=== PATIENT | male | born 1940 | race Caucasian/White ===

== ENCOUNTER 2021-12-04 10:01 | Emergency (ER) | payer MEDICARE, SELFPAY ==
[2021-12-04 10:07] VITALS: BP 183/82; PULSE 68; RESP 16; TEMP 36.2; O2SAT 99
--- NOTE | 2021-12-04 10:11 | ED.WOUNDLAC ---
HPI - Wound/Laceration General Chief Complaint: Wound/Laceration Stated Complaint: L HAND INJURY/SWELLING Time Seen by Provider: 12/04/21 10:10 Source: patient, family and RN notes reviewed History of Present Illness HPI narrative: Patient is an 81-year-old male who presents the urgent care with his spouse with complaints of a left hand wound. Patient states that 5 days ago he cut it on a tomato cage. Patient has been keeping it clean and using Neosporin. Patient states over the last 24 hours he has had increased swelling, pain and redness surrounding the wound. Denies of any fever, nausea or vomiting. No other acute complaints. No acute distress noted. Patient aware of the plan of care. Some parts of this dictation were generated by voice recognition software and may contain typographical and/or grammatical inaccuracies. Related Data Home Medications Medication Instructions Recorded Confirmed multivitamin 1 tablet PO DAILY 06/24/19 12/04/21 travoprost 0.004 % eye drops 1 drop EACH EYE QPM 06/24/19 12/04/21 acetazolamide 250 mg tablet 125 mg PO DAILY tablet 06/21/21 12/04/21 Allergies Allergy/AdvReac Type Severity Reaction Status Date / Time adhesive tape Allergy Severe BLISTERS Verified 12/04/21 10:07 brimonidine Allergy Severe RESPIRATORY Verified 12/04/21 10:07 DISTRESS latex Allergy Severe skin Verified 12/04/21 10:07 removed timolol Allergy Severe RESPIRATORY Verified 12/04/21 10:07 DISTRESS Review of Systems Review of Systems: CONSTITUTIONAL: Denies fever, chills, or sweats. EYES: Denies visual changes, redness, or discharge. ENT: Denies rhinorrhea, congestion, sore throat, or otalgia. CARDIOVASCULAR: Denies chest pain, palpitations, or edema. RESPIRATORY: Denies cough or dyspnea. GASTROINTESTINAL: Denies abdominal pain, nausea, vomiting, or diarrhea. GENITOURINARY: Denies dysuria or hematuria. SKIN: Reports of a swollen skin tear to the left hand MUSCULOSKELETAL: Denies back pain, joint pain, or myalgia. NEUROLOGIC: Denies headache, numbness, or weakness. All other systems reviewed are negative, except as documented in HPI. [facility] Past Medical History Medical History DVT (deep venous thrombosis) Essential hypertension Glaucoma History of gout Surgical History Surgical History H/O hernia repair H/O: vasectomy History of appendectomy History of hip replacement Hx of tonsillectomy Family History Family History Mother Hypertension Family history of elevated blood lipids Patient's mother is , Onset Age: 91 Father Carcinoma of colon Malignant neoplasm of prostate Sibling Malignant neoplasm of prostate Carcinoma of colon Brain aneurysm Other No family history of cardiovascular disease Social History Social History (Updated 06/21/21 @ 10:03 by Deloris Styles) Social History: Caffeine-coffee daily Smoking status: Former smoker Alcohol intake: current Alcohol use details: half a bottle of wine per day, scotch a few times a week Comments At the time of my signature, I reviewed and agree with the nursing past medical, surgical, social, and family history. There is no relevant family history pertinent to the patient complaint. Exam Narrative: GENERAL: This is a well-nourished, well-developed patient, in no apparent distress. HEAD: normocephalic, atraumatic. EYES: PERRL. Sclera clear/white. Vision is grossly intact. EARS: External ears normal NOSE: External nose normal with no obvious nasal discharge, nares without redness, no rhinorrhea. THROAT: Mucous membranes moist NECK: Neck supple CARDIOVASCULAR: Regular rate and rhythm without murmurs, gallops, or rubs. GASTROINTESTINAL: Abdomen soft, non-tender, nondistended. Bowel sounds are active. No hepato-splenomegaly, or palpable masses. No gua
== END 2021-12-04 10:23 | disposition home or self-care (01) ==
PROVIDERS: Emergency Provider Nurse Practitioner Family; PCP Internal Medicine
DX: L08.9 Local infection of the skin and subcutaneous tissue, unspecified (principal); S61.412A Laceration without foreign body of left hand, initial encounter; W45.8XXA Other foreign body or object entering through skin, initial encounter; Y93.9 Activity, unspecified; Z87.891 Personal history of nicotine dependence; Z86.718 Personal history of other venous thrombosis and embolism; I10 Essential (primary) hypertension; H40.9 Unspecified glaucoma; M10.9 Gout, unspecified; Z98.52 Vasectomy status; Z96.649 Presence of unspecified artificial hip joint
CPT/HCPCS: 99213; G0463

== ENCOUNTER 2023-03-14 10:45 | Outpatient (RCR) | payer MEDICARE, SELFPAY ==
--- NOTE | 2023-03-07 10:00 | OPREHPOC ---
Outpatient Therapy Plan of Care This is a Multidisciplinary Plan of Care that may contain components documented by all disciplines (PT, OT, and ST.) PT Problem 1 PT Problem #1 Knowledge Deficit PT Goal 1 Goal Patient and Independent with HEP Target Visit 8 PT Problem 2 PT Problem #2 Impaired Strength PT Goal 1 Goal STEVEN ankles 4+/5 Target Visit 8 PT Goal 2 Goal STEVEN hip abductors 4+/5 Target Visit 8 PT Problem 3 PT Problem #3 Impaired Balance PT Goal 1 Goal able to do tandem stance with either leg leading no UE support x 30 seconds Target Visit 8 PT Goal 2 Goal single limb stance either leg 15 seconds without UE support Target Visit 8 PT Problem 4 PT Problem #4 Impaired Gait PT Goal 1 Goal Ambulate outside on uneven surface independently Target Visit 8 PT Problem 5 PT Problem #5 Impaired Vestibular Syste PT Goal 1 Goal Patient able to do 20 seconds of H and diagonal smooth pursuits without eyes jumping Target Visit 8
--- NOTE | 2023-03-07 10:00 | PTOPEVAL1 ---
Assessment and note entered by Felice Kate, PT Evaluation Information Assessment Status Evaluation Diagnosis abnormalities of gait and mobility, vertigo Subjective Information Patient reports feeling of lightheadedness with sitting up and standing up along with unsteadiness on uneven surface when outside. Patient has has falls in the last two year, but non since October of this year when he tripped over a stump. Patient has a bad left eye with glaucoma and needs to have his ears professionally cleaned of ear wax twice a year with saying it should be more than that. No sinus issues or neck issues. Patient reports rarely feeling a spinning sensation, but that it has happened. No N/V or headaches with symptoms. Reported Pain Level Pain Score 0: Self Report Assessment PT Clinical Summary Dragan is an 82 year old male coming into the clinic with a diagnosis of abnormalities of gait and mobility and vertigo. Patient has negative Warren- Halpike to L and R, but weakness in his ankles and hip abductors. Unable to do 5 sit to stands in less than 15 seconds and has some ocular motor concerns. Physical therapy will focus on balance and lower extremity strengthening along with gait and posture improvement with an eye on any new reports of vertigo. Plan of Care Interventions Electrical Stimulation,Gait Training,Hot Pack/Cold Pack,Manual Therapy,Neuro Re-education,Patient/ Caregiver Education,Therapeutic Activities, Therapeutic Exercise,Ultrasound Other Interventions cupping, taping, IASTM PT Services Indicated Yes Treatment Frequency and 1-2x/wk for 8 visits Duration These treatments will address the objective and functional deficits as defined above. The patient will be advanced safely and appropriately in order for the patient to progress towards his/her prior level of function. Additional exercises will be introduced and as well as a comprehensive home exercise program upon discharge, if needed, ?to ensure carryover of functional gains achieved in the clinic. This treatment plan has been reviewed and agreement upon by the patient.
--- NOTE | 2023-03-22 10:43 | PCPTNOTE ---
Mr. Ghosh contacted the clinic on 03/22/23 stating that he no longer wanted to participate in therapy.
--- NOTE | 2023-03-22 10:45 | PTOPDC ---
Assessment and note entered by Rodrick Mak Evaluation Information Assessment Status Discharge - Pt Not Presen Diagnosis abnormalities of gait and mobility, vertigo Subjective Information Assessment PT Clinical Summary Mr. Ghosh attended a total of 2 treatment sessions. He contacted the clinic on 03/22/23 stating that he no longer wanted to participate in therapy, but did not give a reason. He will be discharged from our care. Refer to last daily note for patient discharge status. Plan of Care PT Services Indicated Yes
--- NOTE | 2023-03-22 11:02 | PCPTNOTE ---
Pt. left message 03/21/23 stating that he was canceling the rest of his appointments as he no longer wanted therapy.
== END 2023-03-22 15:31 | disposition home or self-care (01) ==
LOC: ANHPT 10:45
PROVIDERS: PCP Internal Medicine; Visit Provider Internal Medicine
DX: R26.9 Unspecified abnormalities of gait and mobility (principal); R42 Dizziness and giddiness
CPT/HCPCS: 97110; 97112; 97161; 97530

== ENCOUNTER → 2023-04-16 13:35 | Outpatient (CLI) | payer MEDICARE, SELFPAY ==
--- NOTE | ~2023-04-16 | MR_ITS ---
MRI of the left shoulder Technique: Axial proton-density fat-sat images, coronal proton density fat-sat and T2 fat-sat images, and sagittal T1-weighted and T2 fat-sat images were acquired. Clinical History: Pain Findings: There is severe AC joint degenerative change. There is probable rupture of the inferior acr omioclavicular ligament with fluid extending from the subacromial/subdeltoid bursa and into the AC felicita int space itself. Coracoclavicular, coracoacromial, and coracohumeral ligaments appear to be intact. There is complete, full-thickness tear involving the entirety of the supraspinatus tendon, with fluid -filled gap measuring approximately 4.2 x 3.2 cm in extent. Infraspinatus tendon demonstrates a moder ate grade interstitial tear at the myotendinous junction region, the distal fibers appear to be intac t. There is complete tear of the distal subscapularis tendon, with amorphous hyperintense retracted tend on. There is medial dislocation of the biceps tendon from the bicipital groove with advanced intra-ar ticular tendinosis. Humeral head is high riding. There is moderate glenohumeral joint degenerative change. There are smal l glenohumeral joint effusion, with fluid passing through the rotator cuff defect into the subacromia l/subdeltoid bursa. There is probable extensive degenerative labral tearing, especially involving the anterior labrum. Inferior glenohumeral ligament is intact. Possible mild loss of bulk of the supraspinatus and subscap ularis muscle bellies. No muscle edema evident. Impression: Complete full-thickness tears of the supraspinatus and subscapularis tendons, as detailed above. Moderate grade interstitial tear of the infraspinatus tendon at the myotendinous junction region. Medial dislocation of the biceps tendon. Degenerative labral tearing, especially involving the anterior labrum. Advanced AC joint degenerative change with probable rupture of the inferior acromioclavicular ligamen t, with fluid passing from the subacromial/subdeltoid bursa into the AC joint itself. Moderate glenohumeral joint degenerative change with high riding humeral head. Reviewed, dictated and finalized at location M. Impression: Complete full-thickness tears of the supraspinatus and subscapularis tendons, a s detailed above. Moderate grade interstitial tear of the infraspinatus tendon at the myotendinou s junction region. Medial dislocation of the biceps tendon. Degenerative labral tearing, especially involving the anterior labrum. Advanced AC joint degenerative change with probable rupture of the inferior acr omioclavicular ligament, with fluid passing from the subacromial/subdeltoid bur sa into the AC joint itself. Moderate glenohumeral joint degenerative change with high riding humeral head.
== END ==
PROVIDERS: PCP Internal Medicine; Visit Provider Nurse Practitioner
DX: S46.012A Strain of muscle(s) and tendon(s) of the rotator cuff of left shoulder, initial encounter (principal); S46.212A Strain of muscle, fascia and tendon of other parts of biceps, left arm, initial encounter; S43.432A Superior glenoid labrum lesion of left shoulder, initial encounter; M19.012 Primary osteoarthritis, left shoulder
CPT/HCPCS: 73221

== ENCOUNTER 2023-08-17 11:45 | Outpatient (CLI) | payer MEDICARE, SELFPAY ==
--- NOTE | 2023-08-17 12:54 | ECG_ITS ---
Measurements Intervals [place] Rate: 57 P: 4 PA: 148 QRS: 1 QRSD: 84 T: 11 QT: 402 QTc: 392 Interpretive Statements SINUS BRADYCARDIA POOR R-WAVE PROGRESSION CONSIDER PREVIOUS iNFERIOR MYOCARDIAL INFARCTION ABNORMAL ECG COMPARED TO ECG 01/26/2019 17:29:43 NO SIGNIFICANT DIFFERENCE Electronically Signed On 08-17-2023 14:00:45 MANAGER EVENT by Rodrick Wells M.D.
[2023-08-17 13:12] LABS: Basophils Percent Auto 0.4 % (0.2-1.2); Eosinophils Absolute Auto 0.5 K/mm3 (0-0.3); Hemoglobin 14.7 g/dL (14.0-18.0); Immature Granulocyte Absolute 0.03 K/mm3 (0.00-0.031); Immature Granulocyte Percent A 0.4 % (0-0.5); Lymphocytes Absolute Auto 1.67 K/mm3 (0.9-3.2); Lymphocytes Percent Auto 19.9 % (18.3-44.2); Mean Corpuscular HGB Conc 32.7 g/dl (32-36); Mean Corpuscular Volume 100.9 fl (80-100); Mean Platelet Volume 10.2 fl (7.4-10.4); Monocytes Absolute Auto 0.6 K/mm3 (0.1-0.6); Monocytes Percent Auto 7.6 % (2.6-8.5); Neutrophils Absolute Auto 5.5 K/mm3 (1.3-6.7); Neutrophils Percent Auto 65.7 % (45.5-73.1); Platelet Count Result 200 k/mm3 (150-375); Red Blood Count 4.46 M/mm3 (4.6-6.20); Red Cell Distribution Width 12.6 % (11.5-14.5); White Blood Count 8.4 K/mm3 (4.5-10.0)
[2023-08-17 14:52] LABS: MRSA (PCR) NOT DETECTED (NOT DETECTE)
== END 2023-08-17 11:46 | disposition home or self-care (01) ==
LOC: ANHSURGERY 11:55
PROVIDERS: PCP Internal Medicine; Visit Provider Orthopaedic Surgery
DX: Z01.812 Encounter for preprocedural laboratory examination (principal); Z01.810 Encounter for preprocedural cardiovascular examination; M12.812 Other specific arthropathies, not elsewhere classified, left shoulder; R00.1 Bradycardia, unspecified
CPT/HCPCS: 36415; 85025; 87641; 93005

== ENCOUNTER 2023-09-10 03:46 | Day surgery (SDC) | payer MEDICARE, SELFPAY ==
[2023-08-17 12:10] VITALS: BP 164/74; PULSE 66; RESP 16; TEMP 36.9; O2SAT 98; BMI 26.6
--- NOTE | 2023-08-17 12:29 | PC.NURSE ---
Report to the Outpatient Waiting Room, entrance under the green pavilion located off [facility], at time _10:00AM on date __09/10/23__. Planned Procedure Time: __12:00PM . Time changes happen often and if your time is changed the preop area will call you the afternoon before. - You and your visitor will be asked to self-screen and do not enter if you have any COVID symptoms. - A mask is optional within the hospital at this time. Patients may have clear liquids (water, carbonated beverages, clear teas, apple juice) until 3 hours prior to surgery with a maximum of 20 ounces. - No food from midnight until time of surgery. Take the following medications with a SIP of water the morning of surgery: ___NONE DO NOT STOP ANY OF YOUR OTHER PRESCRIPTION MEDICATIONS PRIOR TO SURGERY ?EXCEPT THE FOLLOWING Medications to discontinue per physician ___HOLD ALL VITAMINS/SUPPLEMENTS 3 DAYS PRE-OP Date to take last dose___09/06/23 Please no make-up, nail turkish, hairspray, perfume, deodorant, or body powder the day of surgery. No jewelry (including any body piercings) or valuables the day of surgery, leave them at home. Please take a shower or bath the night before, or the morning of, surgery with an antibacterial soap. Wear comfortable, loose fitting clothing. - Jewelry must be removed prior to entering the operating room. Rings and piercings that are not removed may be cut off. - The hospital will not accept responsibility for valuables. - Please leave all valuables, including medications, at home the day of surgery. If you are going home after surgery, a licensed pharmacy delivery driver must drive you home. - NO public transportation without another adult if you receive anesthesia. - We recommend that an adult stay with you for 24 hours following discharge. - We also recommend that you do not drive, make important decision, drink alcoholic beverages, or take any drugs that were not prescribed by your health care provider for at least 24 hours after your discharge time. Follow any additional instructions given to you from your surgeon. If you or anyone in your household have experienced Covid symptoms in the past week, please notify your surgeon or the nurse liaison at the phone number below for possible testing. Telephone instructions given to ____PATIENT and asked if any additional questions and then verbalized understanding. Patient advised to call surgeon office or pre surgery nurse liaison [phone] if any additional questions.
[2023-09-10] VITALS (14 sets, daily range): BP systolic 122–187; BP diastolic 60–87; PULSE 67–95; RESP 12–25; TEMP 36–37.2; O2SAT 90–100
--- NOTE | ~2023-09-10 | XR_ITS ---
EXAM: XR shoulder LT min 2V DATE: 09/10/2023 14:24 HISTORY: LT REVERSE TOTAL SHOULDER . COMPARISON: 05/17/2023. FINDINGS: Status post left reverse total shoulder arthroplasty. Near-anatomic glenohumeral alignment . Subcutaneous gas over the joint space. No unexpected radiopaque foreign body. IMPRESSION: Expected postsurgical changes, with no radiographic evidence of procedure or hardware rel ated complication. Reviewed, dictated and finalized at location K. DEVELOPER IMPRESSION: Expected postsurgical changes, with no radiographic evidence of pro cedure or hardware related complication.
[2023-09-10] MEDS: ACETAMINOPHEN 500 MG TABLET 1000 MG PO ×2 (11:00→16:02)
[2023-09-10] MEDS: LACTATED RINGERS 1,000 ML 30 ML IV CONT (11:00)
--- NOTE | 2023-09-10 11:12 | WPDHPUPDATE1 ---
History and Physical Update Update Date/Time: 09/10/23 11:12 History and Physical has been reviewed, including an updated exam of the patient. There are NO changes in the patient's condition. Risks, benefits, and alternatives have been discussed and questions answered. Patient agrees to proceed with procedure.
[2023-09-10] MEDS: TRANEXAMIC ACID 1,000MG/ISO100 1,000 MG/100 ML BAG 200 MG IVPB (11:15)
--- NOTE | 2023-09-10 11:56 | WPDANESEPPF ---
Anes - Initial Pre Proc Eval Procedure: Operation Date: 09/10/23 12:00 Proposed Procedures p Left Reverse Total Shoulder Arthroplasty - Vamshi Arevalo MD Date/Time: 09/10/23 11:56 Surgeon: Vamshi Arevalo MD Pre Op Diagnosis: left rotator cuff arthropathy Patient Data Age: 82 Gender: M Height: 1.69 m Weight: 76.2 kg Last Vital Signs Temp 36.9 C 08/17/23 12:10 Pulse 66 08/17/23 12:10 Resp 16 08/17/23 12:10 BP 164/74 H 08/17/23 12:10 Pulse Ox 98 08/17/23 12:10 O2 Del Method Room Air 08/17/23 12:10 Allergies Allergy/AdvReac Type Severity Reaction Status Date / Time adhesive tape Allergy Severe BLISTERS Verified 09/10/23 11:55 brimonidine Allergy Severe RESPIRATORY Verified 09/10/23 11:55 DISTRESS latex Allergy Severe BLISTERS/PE Verified 09/10/23 11:55 ELING timolol Allergy Severe RESPIRATORY Verified 09/10/23 11:55 DISTRESS Home Medications Medication Instructions Recorded Confirmed Type multivitamin 1 tablet PO DAILY 06/24/19 09/10/23 History travoprost 0.004 % eye drops 1 drop ophthalmic (eye) QPM 06/24/19 09/10/23 History (Travatan Z) Patient hx anesthesia problems: none Family hx anesthesia problems: none Results Review: All pre-operative results and documents have been reviewed as part of the pre-operative evaluation. [facility] Past Medical History Medical History Decreased urine stream DJD of left shoulder DVT (deep venous thrombosis) Dysuria Essential hypertension Glaucoma History of gout Prediabetes Rotator cuff arthropathy of left shoulder Surgical History Surgical History H/O hernia repair H/O: vasectomy History of appendectomy History of hip replacement Hx of tonsillectomy Family History Family History Mother Hypertension Family history of elevated blood lipids Patient's mother is , Onset Age: 91 Father Carcinoma of colon Malignant neoplasm of prostate Sibling Malignant neoplasm of prostate Carcinoma of colon Brain aneurysm Other No family history of cardiovascular disease Social History Social History Social History: Caffeine-coffee daily Smoking status: Never smoker Alcohol intake: current Drinks per week: 21 Alcohol use details: 6 OZ WINE + 3 OZ WHISKEY/DAY Lack of Transportation: No Lack of Food: Never True Current Housing: I Have Housing Concerned About Future Housing: No Difficulty Paying Gas/Electric Bills: No Difficulty Paying for Meds: No Currently Unemployed: No Education: Master's Degree or Higher Difficulty w/ Childcare or Family Care: No Living arrangements: with family Additional living arrangements comments: Occupation/Education: retired Spiritual care concerns: No Anes - Eval Final PreProcedure Day of Procedure 09/10/23 11:56 Patient weight: overweight Heart: regular rate and rhythm Lungs: clear to auscultation Airway: Mallampati scale class II Neurological: alert and oriented Last oral intake: >/= 8 hours ASA classification: II Emergent: no Anesthetic plan: proceed Anesthesia type and monitoring: general ETT and standard monitoring Results Review: All pre-operative results and documents have been reviewed as part of the pre-operative evaluation. Informed Consent: The patient's anesthetic plan and its attendant risks and benefits were discussed with the patient/family/POA. Questions were solicited and answers provided to the satisfaction of the patient/family/POA.
[2023-09-10] MEDS: ceFAZolin 2 GM/D5W 50 ML 2 GM/50 ML BAG IVPB ×2 (11:57→20:59)
[2023-09-10] MEDS: SODIUM CHLORIDE 0.9% IV 37.7 ML, MORPHINE SULFATE INJ (*CRX) 2 MG, ROPivacaine HCL 1% 2... INFILTRATE (12:42)
[2023-09-10] MEDS: VANCOMYCIN HCL 1,000 MG VIAL 1000 MG TOPICAL (12:43)
--- NOTE | 2023-09-10 13:55 | W.PM.PROC2 ---
Procedure Note - Detailed Date of Procedure 09/10/23 Pre-op Diagnosis left rotator cuff arthropathy Post-op Diagnosis Same Procedure Performed Reverse total shoulder arthroplasty, left. Surgeon Vamshi Arevalo MD Liquefaction Supervisor Doris Paige PA-C Anesthesia General and Regional (Interscalene block.) Indications Chronic massive rotator cuff tear. Pseudoparalytic. Findings Good bone quality. Massive cuff tear including subscapularis. No glenoid erosion. Description of Procedure The patient was given an interscalene block in the preoperative area. Preoperative antibiotics were given. The patient was transferred to the operating room and a general anesthetic was administered. The beach chair position was used at 45 degrees. All bony prominences were padded. The head was carefully stabilized on the [facility] head cleaning porter. A sterile prep and drape was performed in the usual manner with ChloraPrep. A longitudinal incision was created at the anterior shoulder just lateral to the deltopectoral interval. Hydrogen peroxide was placed on the incision and then rinsed after one minute. Careful dissection was performed to expose the interval and protect the cephalic vein. The vein was retracted medially. The upper border of the pectoralis was released. Anterior circumflex vessel branches were suture ligated. The biceps was tenodesed. A subscapularis tenotomy was performed, although the tissue was very attenuated. The bursa was thickened in this area. This tissue was reapproximated with 2. Ethibond suture through bone tunnels at the conclusion of the procedure. The inferior capsule was released, exposing the humeral head. Osteophytes were removed. Care was taken to stay on bone to protect the axillary nerve. The anatomic head cut was taken with the oscillating saw. The guide pin was placed, central drilling performed, and the broach trial inserted. The neck anteversion and inclination were carefully assessed. The cut protector was placed, and attention was turned to the glenoid. Retractors were placed. Releases were carried out for exposure. The subscapularis was mobilized, the inferior capsule and long head of triceps released, and the superior and middle glenohumeral ligaments released as well. Labral tissue was resected as needed. There was significant cartilage remaining which was removed with a Shipley elevator. There was no bony erosion. The sizing template was used to assess the baseplate position just below the midpoint on the glenoid. A guide pin was placed. Minimal reaming was used to accomplish a flat surface without violating the subchondral bone. Version was corrected according to preoperative templating. Approximately 10? inferior angulation was performed. The boss was drilled, and the real component was impacted into position. Supplemental locking screws were placed centrally, superiorly, and inferiorly. The glenosphere was impacted into the taper. The proximal humerus was reamed for the inset component. The humeral components were trialed. The real humeral stem, tray, and insert were impacted into position. The shoulder was copiously irrigated periodically with pulsatile lavage. The shoulder was reduced and stability confirmed. 1 gram of Vancomycin powder was placed in the joint. The biceps tenodesis was incorporated with the pectoralis tendon repair. The deltopectoral space was reapproximated with number 1 Vicryl. The remaining tissue was closed with 0 Quill and 2-0 Quill running suture and steri-strips. A sterile silver occlusive dressing and shoulder immobilizer were placed. The patient was transferred to the recovery room. Physician pediatric assistant, Doris Paige PA-C, required for surgery; including patient positioning, draping, tissue retraction, maintaining instrument position, wound closure, and dressing placement. Implants Shoulder [employer]ations reverse TSA size 0 stem. +0 polyethylene insert. Standard baseplate. 36 +6 mm glenosphere. Estimated Blood Loss
[2023-09-10] MEDS: fentaNYL CITRATE INJ (*CRX) 100 MCG/2 ML VIAL 25 MCG IV PUSH ×4 (14:28→14:55)
[2023-09-10] MEDS: ASPIRIN 81 MG ENTERIC TABLET PO (16:02)
[2023-09-11 03:24] VITALS: BP 131/70; PULSE 78; RESP 16; TEMP 36.9; O2SAT 98
[2023-09-11] MEDS: ceFAZolin 2 GM/D5W 50 ML 2 GM/50 ML BAG IVPB (03:59)
[2023-09-11 06:29] LABS: Anion Gap 7 mmol/L (8-16); Blood Urea Nitrogen 22 mg/dL (9-20); Calcium 8.7 mg/dL (8.4-10.2); Carbon Dioxide 25 mmol/L (22-30); Chloride 106 mmol/L (98-107); Estimated CRCL calculation 49 ml/min; Estimated Glomerular Filt Rate > 60; Glucose 97 mg/dL (65-110); Sodium 138 mmol/L (137-145)
[2023-09-11 06:58] LABS: Basophils Percent Auto 0.1 % (0.2-1.2); Hematocrit 40.8 % (42.0-52.0); Hemoglobin 13.4 g/dL (14.0-18.0); Immature Granulocyte Absolute 0.07 K/mm3 (0.00-0.031); Immature Granulocyte Percent A 0.5 % (0-0.5); Lymphocytes Absolute Auto 1.47 K/mm3 (0.9-3.2); Lymphocytes Percent Auto 10.9 % (18.3-44.2); Mean Corpuscular HGB Conc 32.8 g/dl (32-36); Mean Corpuscular Hemoglobin 33.3 pg (26-34); Mean Corpuscular Volume 101.2 fl (80-100); Mean Platelet Volume 10.6 fl (7.4-10.4); Monocytes Absolute Auto 1.7 K/mm3 (0.1-0.6); Monocytes Percent Auto 12.6 % (2.6-8.5); Neutrophils Absolute Auto 10.3 K/mm3 (1.3-6.7); Neutrophils Percent Auto 75.9 % (45.5-73.1); Platelet Count Result 166 k/mm3 (150-375); Red Blood Count 4.03 M/mm3 (4.6-6.20); Red Cell Distribution Width 12.8 % (11.5-14.5); White Blood Count 13.5 K/mm3 (4.5-10.0)
--- NOTE | 2023-09-11 07:12 | WPDANESPN ---
Anes - Prog Note Post-Op Date/Time: 09/11/23 07:12 Cardiovascular status: normal Respiratory status: normal Airway patency: baseline Mental status: baseline Post-Op hydration status: normal Vital Signs: Last Vital Signs Temp 98.4 F 09/11/23 03:24 Pulse 78 09/11/23 03:24 Resp 16 09/11/23 03:24 BP 131/70 09/11/23 03:24 Pulse Ox 98 09/11/23 03:24 O2 Del Method Nasal Cannula 09/10/23 20:00 O2 Flow Rate 2 09/10/23 20:00 Pain Score (VAS): 7 I/O: Intake & Output 09/10/23 09/10/23 09/11/23 15:59 23:59 07:59 Intake Total 350 290 650 Balance 350 290 650 Laboratory Tests 09/11/23 06:42 09/11/23 05:54 09/10/23 09/11/23 09/11/23 11:12 05:54 06:42 WBC 13.5 H RBC 4.03 L Hgb 13.4 L Hct 40.8 L MCV 101.2 H MCH 33.3 MCHC 32.8 RDW 12.8 Plt Count 166 MPV 10.6 H Immature Gran % (Auto) 0.5 Neut % (Auto) 75.9 H Lymph % (Auto) 10.9 L Gates % (Auto) 12.6 H Eos % (Auto) 0.0 Baso % (Auto) 0.1 L Lymph # (Auto) 1.47 Gates # (Auto) 1.7 H Eos # (Auto) 0.0 Baso # (Auto) 0.0 Abs Immat Gran (auto) 0.07 H Absolute Neuts (auto) 10.3 H Absolute Nucleated RBC 0.0 Nucleated RBC % 0.0 Sodium 138 Potassium 4.0 Chloride 106 Carbon Dioxide 25 Anion Gap 7 L BUN 22 H Creatinine 0.90 Estim Creat Clear Calc 49 Estimated GFR > 60 Glucose 97 Calcium 8.7 Blood Type A Positive Antibody Screen Negative Post-procedural complaints: none Patient Feedback: Patient satisfied with anesthetic care.
[2023-09-11 08:00] VITALS: BP 173/83; PULSE 81; RESP 18; TEMP 36.7; O2SAT 95
[2023-09-11] MEDS: ASPIRIN 81 MG ENTERIC TABLET PO (09:08)
[2023-09-11] MEDS: traMADol HCL (*CRX) 50 MG TABLET PO (09:10)
[2023-09-11] MEDS: FAMOTIDINE 20 MG TABLET PO (09:10)
--- NOTE | 2023-09-11 09:22 | PM.DS ---
DS: Admitting Diagnosis Discharge Date 09/11/23 Admitting Diagnosis Massive rotator cuff tear. DS: Discharge Diagnosis Discharge Diagnosis (1) Status post reverse total arthroplasty of left shoulder: Code(s): Z96.612 - Presence of left artificial shoulder joint Status: Acute Assessment and Plan: Postop day 1: Left reverse total shoulder arthroplasty. Patient tolerated procedure well. No complications. Pain manageable with pain medication. No numbness or tingling. We had a lengthy discussion regarding postoperative wound care, limitations, expectations, and exercises. Patient shows good understanding. He has had initial physical therapy and is tolerating it well. DVT prophylaxis: 81 mg baby aspirin b.i.d. for 14 days. Pain medication: Tramadol. Patient has followup appointment with Dr. Arevalo in 3 weeks. DS: Summary Hospital Course Hospital Course: Has had initial PT/OT and is tolerating it well. Status at Discharge Functional status at discharge: independent ambulation Overall status at discharge: patient is progressing back to baseline Time Spent with Patient Time attestation: Total time spent providing and/or coordinating discharge services: Exam Narrative: Normal weight 82 y/o male. Resting comfortably in chair. Wearing sling. Dressing dry and intact with no drainage. Moderate swelling. Moderate ecchymosis. No erythema. No hematoma. Range of motion limited due to pain. Calf nontender. Neurologic status intact. No varicosities. Distal pulses palpable. DS: Data Data Completed and Pending Labs on day of discharge: Labs from last 24 hours 09/11/23 09/11/23 09/10/23 06:42 05:54 11:12 WBC 13.5 H RBC 4.03 L Hgb 13.4 L Hct 40.8 L MCV 101.2 H MCH 33.3 MCHC 32.8 RDW 12.8 Plt Count 166 MPV 10.6 H Immature Gran % (Auto) 0.5 Neut % (Auto) 75.9 H Lymph % (Auto) 10.[address] [place] % (Auto) 12.6 H Eos % (Auto) 0.0 Baso % (Auto) 0.1 L Lymph # (Auto) 1.47 [facility] # (Auto) 1.7 H Eos # (Auto) 0.0 Baso # (Auto) 0.0 Abs Immat Gran (auto) 0.07 H Absolute Neuts (auto) 10.3 H Absolute Nucleated RBC 0.0 Nucleated RBC % 0.0 Sodium 138 Potassium 4.0 Chloride 106 Carbon Dioxide 25 Anion Gap 7 L BUN 22 H Creatinine 0.90 Estim Creat Clear Calc 49 Estimated GFR > 60 Glucose 97 Calcium 8.7 Blood Type A Positive Antibody Screen Negative Discharge Plan Discharge Patient Disposition: Home, Self-Care Discharge Instructions: See green instruction sheets Stand Alone Forms: General Discharge Instructions Follow-up/Referrals: Doris Paige PA [Physician Retail Merchandising Coordinator] - Discharge Medications: New aspirin 81 mg tablet,delayed release (DR/EC) 81 mg PO BID 14 Days Qty: 28 0RF oxycodone-acetaminophen 5-325 mg tablet 1 - 2 tablet PO Q4-6H MDD 6 PRN (Reason: pain) Qty: 10 0RF tramadol 50 mg tablet 50 mg PO Q6H PRN (Reason: pain) Qty: 15 0RF Continued multivitamin Tablet 1 tablet PO DAILY Travatan Z 0.004 % drops 1 drop EACH EYE QPM
[2023-09-11 11:12] VITALS: O2SAT 94
[2023-09-11 12:01] VITALS: BP 124/72; PULSE 90; RESP 16; TEMP 36.9; O2SAT 95
== END 2023-09-11 13:30 | disposition home or self-care (01) ==
LOC: ANHSURGERY 14:49 → ANH3MEDSUR 15:32
PROVIDERS: Physician Assistant Surgical; PCP Internal Medicine; Visit Provider Orthopaedic Surgery
PROC: (CPT 23472; principal; 2023-09-10 12:00)
DX: M75.102 Unspecified rotator cuff tear or rupture of left shoulder, not specified as traumatic (principal); M19.012 Primary osteoarthritis, left shoulder; H40.9 Unspecified glaucoma; Z87.891 Personal history of nicotine dependence
CPT/HCPCS: 23472; 36415; 73030; 80048; 85025; 86850; 86900; 86901; 87641; 93005; 97110; 97161; 97165; 97530; 97535; A4565; A9270; C1776; J0171; J0330; J0690; J1100; J1885; J2250; J2270; J2371; J2405; J2704; J2795; J3010; J3370; J7120

== ENCOUNTER 2023-11-01 07:06 | Outpatient (CLI) | payer MEDICARE, SELFPAY ==
--- NOTE | ~2023-11-01 | XR_ITS ---
Left Shoulder Technique: AP and scapular Y views were obtained. Clinical History: Postoperative COMPARISON: 09/10/2023 Findings: No fracture or dislocation is seen. Reverse left shoulder arthroplasty is unchanged. Stable degenerative change at the AC joint. Soft tissues are unremarkable. Impression: Stable reverse left shoulder arthroplasty. Stable degenerative change at the AC joint. Reviewed, dictated and finalized at [facility]. Impression: Stable reverse left shoulder arthroplasty. Stable degenerative change at the AC joint.
== END 2023-11-01 07:07 | disposition home or self-care (01) ==
PROVIDERS: PCP Internal Medicine; Visit Provider Orthopaedic Surgery
DX: Z47.1 Aftercare following joint replacement surgery (principal)
CPT/HCPCS: 73030

== ENCOUNTER 2023-12-07 11:03 | Outpatient (CLI) | payer MEDICARE, SELFPAY ==
--- NOTE | ~2023-12-07 | XR_ITS ---
Clinical Indication: Cough PA and lateral views of the chest: Comparison: 01/26/2019 Findings: The lungs are clear, without evidence of focal consolidation or pleural effusion. Cardiome diastinal silhouette is within normal limits. Bones and soft tissues are unremarkable, aside from lef t shoulder arthroplasty. Impression: Clear lungs. Reviewed, dictated and finalized at location . Impression: Clear lungs.
== END 2023-12-07 11:04 ==
PROVIDERS: PCP Internal Medicine; Visit Provider Nurse Practitioner
DX: R05.9 Cough, unspecified (principal)
CPT/HCPCS: 71046

== ENCOUNTER 2023-12-19 15:01 | Outpatient (CLI) | payer MEDICARE, SELFPAY ==
--- NOTE | ~2023-12-19 | XR_ITS ---
Left Hand Technique: PA and lateral views were obtained. Clinical History: Fifth digit pain and swelling Findings: No acute fracture or dislocation is seen. Osseous alignment is anatomic. There is severe de generative change of the first CMC joint, interphalangeal joint of the thumb, and fifth PIP joint. Th ere is moderate degenerative change of the third and fourth PIP joints. There is mild degenerative ch jeffery of the DIP joints. Soft tissues are unremarkable. Impression: Degenerative changes, as detailed above, worst at the fifth MP joint, first CMC joint, and interphala ngeal joint of the thumb. Reviewed, dictated and finalized at location M. Impression: Degenerative changes, as detailed above, worst at the fifth MP joint, first CMC joint, and interphalangeal joint of the thumb.
== END 2023-12-19 15:02 | disposition home or self-care (01) ==
LOC: ANHIMG 15:03
PROVIDERS: PCP Internal Medicine; Visit Provider Clinical Nurse Specialist
DX: M79.645 Pain in left finger(s) (principal); R93.6 Abnormal findings on diagnostic imaging of limbs
CPT/HCPCS: 73120

== ENCOUNTER 2024-04-28 15:16 | Emergency (ER) | payer MEDICARE, SELFPAY ==
--- NOTE | ~2024-04-28 | CT_ITS ---
EXAMINATION: CT facial & cervical spine wo DATE: 04/28/2024 16:06 INDICATION: Head injury. TECHNIQUE: Computed tomography (CT) of the maxillofacial region and cervical spine was performed with out intravenous contrast. Automated exposure control and iterative reconstruction technique were empl oyed. The dose-length product was 352.41 mGy-cm. COMPARISON: None FINDINGS: MAXILLOFACIAL CT: There is right frontal scalp soft tissue swelling. There are likely changes of ocular lens replacemen t surgeries. There is leftward deviation of the nasal septum. No fracture. There is mild mucosal thic kening in the paranasal sinuses. CERVICAL SPINE CT: There is mild scarring at the lung apices. There is 2 mm anterolisthesis of C4 on C5 and 3 mm anterol isthesis of C7 on T1. Vertebral body heights are normal. There is severely decreased disc height at C 3-C4 with interbody fusion. There is mildly decreased disc height at C4-C5. There is severely decreas ed disc height at C5-C6 with interbody fusion. There is severely decreased disc height at C6-C7 and m oderately decreased disc height at C7-T1. The following disc levels are specifically discussed: C2-C3: There is mild right and severe left uncovertebral joint osteoarthritis. There is severe bilate ral facet joint osteoarthritis. There is moderate left neural foraminal stenosis. There is mild centr al canal stenosis. C3-C4: There is mild bilateral uncovertebral joint hypertrophy. There is ankylosis of the facet joint s with moderate left hypertrophy. There is mild bilateral neural foraminal stenosis. There is no cent ral canal stenosis. C4-C5: There is severe right and mild left uncovertebral joint osteoarthritis. There is severe bilate ral facet joint osteoarthritis. There is mild right and moderate left neural foraminal stenosis. Ther e is mild central canal stenosis. C5-C6: There is ankylosis of the uncovertebral joints with severe hypertrophy. There is ankylosis of the facet joints with moderate right and mild left hypertrophy. There is moderate bilateral neural fo raminal stenosis. There is mild central canal stenosis. C6-C7: There is severe bilateral uncovertebral joint osteoarthritis. There is severe bilateral facet joint osteoarthritis. There is mild right and moderate left neural foraminal stenosis. There is mild central canal stenosis. C7-T1: There is mild bilateral uncovertebral joint osteoarthritis. There is severe bilateral facet felicita int osteoarthritis. There is mild bilateral neural foraminal stenosis. There is mild central canal st enosis. IMPRESSION: 1. No fracture. 2. Severe cervical spondylosis. Reviewed, dictated and finalized at location A.
--- NOTE | ~2024-04-28 | CT_ITS ---
CT brain wo con Ordering provider: Jeff Desai APRN History: 83 years Male with . fall with loss of consciousness, facial trauma . Comparison: None. Technique: CT of the head without contrast. Radiation reduction technique utilized. The dose-length product was 681 mGy-cm. FINDINGS: BRAIN PARENCHYMA AND CSF SPACES: Mild leukoaraiosis and diffuse cortical atrophy more prominent in th e temporal lobes.. Mild atheromatous disease. No midline shift, mass effect or hemorrhage. The brain parenchyma and CSF spaces are otherwise normal. VISUALIZED PARANASAL SINUSES: Well aerated. MASTOIDS: Well aerated. BONES: The bones appear intact. SOFT TISSUES: Visualized nasopharynx is normal. Small right frontal scalp hematoma. Otherwise, Super ficial soft tissues are normal. IMPRESSION: No acute intracranial findings. Reviewed, dictated and finalized at location A.
--- NOTE | ~2024-04-28 | XR_ITS ---
XR forearm RT 2V Ordering provider: Jeff Desai APRN History: . fall, trauma . Comparison: None. FINDINGS: BONES: No definite acute fracture or dislocation. Small bony fragment seen near to the pisiform bone which may indicate soft tissue ossification but fracture cannot be excluded. Clinical correlation for tenderness in the area is advised. JOINT SPACES: Osteoarthritic changes of the first carpometacarpal joint. SOFT TISSUES: Ossification of the insertion of the triceps tendon is noted. IMPRESSION: No definite acute osseous abnormality right forearm. Bony fragment near to the pisiform bone which may indicate a fracture or ossification the soft tissue s or nonunited apophysis. Clinical evaluation for tenderness advised. Reviewed, dictated and finalized at location A. IMPRESSION: No definite acute osseous abnormality right forearm. Bony fragment near to the pisiform bone which may indicate a fracture or ossifi cation the soft tissues or nonunited apophysis. Clinical evaluation for tendern ess advised.
--- NOTE | ~2024-04-28 | XR_ITS ---
XR humerus RT Ordering provider: Jeff Desai APRN History: . fall, trauma . Comparison: None. FINDINGS: BONES: No acute fracture or dislocation. Elevation of the humeral head is noted. JOINT SPACES: Normal. SOFT TISSUES: Normal. IMPRESSION: No acute osseous abnormality right humerus. Elevation of the humeral head. Rotator cuff tear should be considered. Reviewed, dictated and finalized at location A.
[2024-04-28 15:17] VITALS: BP 178/92; PULSE 93; RESP 16; TEMP 36.4; O2SAT 97
--- NOTE | 2024-04-28 15:29 | ED.GENADULT ---
HPI - General Adult General Chief complaint: Fall Stated complaint: FALL Time Seen by Provider: 04/28/24 15:29 Source: patient, family and EMS Mode of arrival: EMS Limitations: no limitations History of Present Illness HPI narrative: This is an 83-year-old male patient generally healthy was out walking on the trails with his whenever she told him he was walking too fast so he turned around to talk to her and he stumbled falling to the ground striking his right forearm elbow right side of his forehead and nose right-sided his lip on the ground. states there was momentary lapse of focus/loss of consciousness but he quickly responded. He had some bleeding from the right side was knows that has since stopped. EMS went to seen to assess and patient was initially going to refuse but when he was turning his neck side to side he had a little bit of discomfort so he excepted transport to the emergency department for evaluation. Patient does not take any anticoagulation or aspirin but he does routinely due two shots of bourbon per day. No history withdrawal. Patient complaining of pain to the areas of visible injury and no other areas of pain. Specifically no shoulder or wrist pain. Related Data Home Medications Medication Instructions Recorded Confirmed multivitamin 1 tablet PO DAILY 06/24/19 01/04/24 travoprost 0.004 % eye drops 1 drop ophthalmic (eye) QPM 06/24/19 01/04/24 (Travatan Z) Allergies Allergy/AdvReac Type Severity Reaction Status Date / Time adhesive tape Allergy Severe BLISTERS Verified 01/04/24 11:20 brimonidine Allergy Severe RESPIRATORY Verified 01/04/24 11:20 DISTRESS latex Allergy Severe BLISTERS/PE Verified 01/04/24 11:20 ELING timolol Allergy Severe RESPIRATORY Verified 01/04/24 11:20 DISTRESS Review of Systems Review of Systems: All systems reviewed & are unremarkable except as noted in HPI and below PMFSH Past Medical History Medical History Decreased urine stream DJD of left shoulder DVT (deep venous thrombosis) Dysuria Essential hypertension Glaucoma History of gout Prediabetes Rotator cuff arthropathy of left shoulder Surgical History Surgical History H/O hernia repair H/O: vasectomy History of appendectomy History of hip replacement History of reverse total replacement of left shoulder joint (~09/10/23) Hx of tonsillectomy Family History Family History Mother Hypertension Family history of elevated blood lipids Patient's mother is , Onset Age: 91 Father Carcinoma of colon Malignant neoplasm of prostate Sibling Malignant neoplasm of prostate Carcinoma of colon Brain aneurysm Other No family history of cardiovascular disease Social History Social History Social History: Caffeine-coffee daily Years smoked: 10 Smoking status: Former smoker Alcohol intake: current Drinks per week: 21 Alcohol use details: 6 OZ WINE + 3 OZ WHISKEY/DAY Substance use type: does not use Do You Feel Safe in your Home?: Yes Lack of Transportation: No Lack of Food: Never True Current Housing: I Have Housing Concerned About Future Housing: No Difficulty Paying Gas/Electric Bills: No Difficulty Paying for Meds: No Currently Unemployed: No Education: Master's Degree or Higher Difficulty w/ Childcare or Family Care: No Living arrangements: with family Additional living arrangements comments: Occupation/Education: retired Spiritual care concerns: No Exam Narrative: GENERAL: Appears younger than stated age, no acute distress HEAD: Normocephalic, minor abrasion right forehead, slightly swollen nasal bridge, dried blood from right Naris and swollen right lip with abrasion
[2024-04-28 15:52] VITALS: BP 198/97; PULSE 78; RESP 20; TEMP 36.8; O2SAT 96
[2024-04-28 16:42] VITALS: BP 167/90; PULSE 73; RESP 18; O2SAT 95
[2024-04-28] MEDS: LIDOCAINE HCL 2% VISC SOLN 15 ML UDC XX (16:42)
[2024-04-28] MEDS: BACITRACIN OINTMENT 15 GM TUBE 1 APPLIC TOPICAL (16:42)
[2024-04-28] MEDS: TETANUS,DIPHTHERIA,AC PERTUSSIS ADULT (0.5 ML) BOOSTRIX IM (16:42)
== END 2024-04-28 17:16 | disposition home or self-care (01) ==
PROVIDERS: Emergency Provider Nurse Practitioner; PCP Nurse Practitioner
DX: S06.9X1A Unspecified intracranial injury with loss of consciousness of 30 minutes or less, initial encounter (principal); S51.011A Laceration without foreign body of right elbow, initial encounter; Z23 Encounter for immunization; I10 Essential (primary) hypertension; M47.812 Spondylosis without myelopathy or radiculopathy, cervical region; W01.0XXA Fall on same level from slipping, tripping and stumbling without subsequent striking against object, initial encounter
CPT/HCPCS: 70450; 70486; 72125; 73060; 73090; 90471; 90715; 99284; A9270

== ENCOUNTER 2024-05-15 09:52 | Outpatient (CLI) | payer MEDICARE, SELFPAY | END 2024-05-15 09:53 | disposition home or self-care (01) | LOC: ANHAUDIO 09:54 | PROVIDERS: PCP Nurse Practitioner; Visit Provider Nurse Practitioner | DX: H91.90 Unspecified hearing loss, unspecified ear (principal) | CPT/HCPCS: 92567 ==

== ENCOUNTER 2024-11-07 13:47 | Outpatient (CLI) | payer MEDICARE, SELFPAY ==
--- OUTSIDE RECORDS SUMMARY | 2024-11-07 13:55 | XMS_ITS | Referral Summary ---
Author [place] [facility] [place] [address] Address [address] [place] [address] Care Team Providers Care Technical Photographer Name Role Phone El Jarrett DO Primary Care Provider [phone] Allergies Active Allergy Reactions Criticality Noted Date Comments Brimonidine Tartrate Redness Low 11/07/2013 Brimonidine-Timolol Itching Low 08/07/2013 Bimatoprost Unknown 08/16/2018 Timolol Swelling Medium 11/15/[address] (VOLTAREN) 75 mg EC tabletIndicatio ns:Osteoarthrit is Take 1 tablet (75 mg total) by mouth 2 (two) times a day as needed Active multivitamin capsuleIndicati ons:Vitamin Deficiency Prevention Take 1 capsule by mouth bean sprout laborer before breakfast Active losartan (COZAAR) 25 mg tabletIndicatio ns:hypertension Take 25 mg by mouth bean sprout laborer before breakfast 9 Active mupirocin (BACTROBAN) 2 % ointment APPLY TO AFFECTED AREA THREE TIMES DAILY 2 Active cephalexin (KEFLEX) 500 mg capsule Take 1 capsule (500 mg total) by mouth every 12 (twelve) hours 2 Active travoprost (TRAVATAN Z) 0.004 % drops INSTILL 1 DROP INTO BOTH EYES NIGHTLY 7.5 mL 3 4 Active Active Problems Problem Noted Date Diagnosed Date Primary open angle glaucoma (POAG) of left eye, severe stage 08/20/2018 Assessment & Plan (02/24/2019 1:28 PM CDT): IOP 13mmHg OS today, near goal of <12mmHg. S/p SLT in 09/2018. Multiple drop intolerances. Tolerating shawn z and PO diamox well. CPM with travatan z and acetazolamide 125mg PO bid. F/u IOP ck with Dr. Bauer in 3-4 months. Primary open angle glaucoma (POAG) of right eye, mild stage 08/20/2018 Assessment & Plan (02/24/2019 1:28 PM CDT): IOP acceptable today. CPM with travatan z and diamox 125mg PO bid. F/u in 3-4 mos with AB. Meibomian gland dysfunction (MGD) of both eyes 1 08/27/2017 Age-related nuclear cataract of right eye 2017 Assessment & Plan (02/24/2019 1:28 PM CDT): Not interested in CE/IOL yet. CTM. Assessment & Plan (03/04/2018 3:57 PM CDT): Not visually significant, follow for now, UV protection, RTC if any changes to vision. Preoperative cardiovascular examination 05/23/20 17 HTN (hypertension), benign 05/23/2017 Abnormal EKG 05/23/2017 Chronic fatigue 05/23/2017 Resolved Problems Problem Noted Date Diagnosed Date Resolved Date Other specified glaucoma 03/04/2018 Assessment & Plan (08/16/2018 11:37 AM ACTIVITIES AIDE): GS OD, high risk OAG OS, severe IOP at goal (<21) OD, above goal (low teens) OS on 1 class + Diamox Pt with sxs of lightheadedness on standing, likely orthostatic HTN, concerned with overdiuresis (also with significant EtOH/caffeine consumption). Discussed risk of falls and need for improved hydration. Progression OS on today's HVF from 2017. Recommend SLT OU. Discussed potential need for incisional glc surgery given high risk of continued Diamox therapy. Immunizations Immunization Administration Dates Next Due [employer] SARS-CoV-2 Monovalent Vaccination (12+ Yrs) PURPLE 06/29/2021,09/19/2020,08/26/2020 Social History Tobacco Use Types Packs/Day Years Used Date Smoking Tobacco: Never Smokeless Tobacco: Never Alcohol Use Standard Drinks/Week Comments Yes 0 (1 standard drink = 0.6 oz pur e alcohol) 2-3 drinks per day Sex and Gender Information Value Date Recorded Sex Assigned at Not on file Legal Sex Male 10:43 AM ACTIVITIES AIDE Gender Identity Not on file Sexual Orientation Not on file Last Filed Vital Signs Vital Sign Reading Time Taken Comments Blood Pressure 125/71 03/01/2020 3:30 PM CDT Pulse 53 03/01/2020 3:30 PM CDT Temperature 37 C (98.6 F) 03/01/2020 3:20 PM CDT Respiratory Rate 18 03/01/2020 3:30 PM CDT Oxygen Saturation 94% 03/01/2020 3:30 PM CDT Inhaled Oxygen Concentration - - Weight 72.6 kg (160 lb) 02/19/2020 3:45 PM CDT Height 170.2 cm (5' 7 ) 02/19/2020 3:45 PM CDT Body Mass Index 25.06 02/19/2020 3:45 PM CDT Plan of Treatment Not on file Medical Devices Implanted Type Area Clinical Immunologist Device Identifier Shelf Expiration Date Model / Serial / Lot [employer] [id number] Acrysof Iq Natural Stableforce Acrysert 6mm 13mm 1 Piece Foldable - [id number] - [id number] Implanted:Qty: 1 on 03/01/2020 by Jaelyn Bauer MD at [facility] [employer] [id number] 09/20/2024 [id number] / [id number] / Insurance [employer] Care Teams Technical Photographer Relationship Specialty Start Date End Date El Jarrett DO PCP - General Internal Medicine 07/01/19
--- OUTSIDE RECORDS SUMMARY | 2024-11-07 13:56 | XMS_ITS | Clinical Summary ---
Author Organization [facility] [place] [address] Address [address] [place] [address] Care Team Providers Care Field Operations Coordinator Name Role Phone El Jarrett DO Primary Care Provider [phone]- [phone] Allergies Active Allergy Reactions Criticality Noted Date Comments Brimonidine Tartrate Redness Low 11/07/2013 Brimonidine-Timolol Itching Low 08/07/2013 Bimatoprost Unknown 08/16/2018 Timolol Swelling Medium 11/15/[address] (VOLTAREN) 75 mg EC tabletIndicatio ns:Osteoarthrit is Take 1 tablet (75 mg total) by mouth 2 (two) times a day as needed Active multivitamin capsuleIndicati ons:Vitamin Deficiency Prevention Take 1 capsule by mouth optometrist owner before breakfast Active losartan (COZAAR) 25 mg tabletIndicatio ns:hypertension Take 25 mg by mouth optometrist owner before breakfast 9 Active mupirocin (BACTROBAN) 2 [...] 03/04/2018 Assessment & Plan (08/16/2018 11:37 AM AWNING ASSEMBLER): GS OD, 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 Immunizations Immunization Administration Dates Next Due [employer] SARS-CoV-2 Monovalent Vaccination (12+ Yrs) PURPLE 06/29/2021,09/19/2020,08/26/2020 Surgical History Surgery Date Site/Laterality Comments HERNIA REPAIR EYE SURGERY CATARACT EXTRACTION Bilateral INTRAOCULAR LENS INSERTION TONSILECTOMY, ADENOIDECTOMY, BILATERAL MYRINGOTOMY AND TUBES 07/16/1952 - 07/15/1953 Bilateral APPENDECTOMY 07/16/1952 - 07/15/1953 TOTAL HIP ARTHROPLASTY 07/16/2016 - 07/15/2017 Right TOTAL HIP ARTHROPLASTY 07/16/2018 - 07/15/2019 Left Medical History Medical History Date Comments Hypertension Hyperlipidemia Cataract Glaucoma Family History Medical History Relation Name Comments Prostate cancer Brother 1 Brayan Brain Aneurysm Brother 2 Anton Relation Name Status Comments Brother 1 Brayan (Age 72) Brother 2 Anton (Age 64) Father (Age 57) Mother (Age 91) Sister 1 Janessa Alive Sister 2 Peffy Alive Social History Tobacco Use Types Packs/Day Years Used Date Smoking Tobacco: Never Smokeless Tobacco: Never Alcohol Use Standard Drinks/Week Comments Yes 0 (1 standard drink = 0.6 oz pur e alcohol) 2-3 drinks per day Sex and Gender Information Value Date Recorded Sex Assigned at Not on file Legal Sex Male 10:43 AM AWNING ASSEMBLER Gender Identity Not on file Sexual Orientation Not on file Obstetrics History Last Filed Vital Signs Vital Sign Reading [...] 02/19/2020 3:45 PM CDT Plan of Treatment Health Maintenance Due Date Last Done Comments Depression Screening 1938 DTaP/Tdap/Td Vaccine (1 - Tdap) 1949 Hepatitis B Screening 1956 Pneumococcal vaccine 65+ (1 of 1 - PCV) 1988 Zoster Vaccine (1 of 2) 1988 Well Visit 65+ 10/31/2003 Fall Risk Assessment 03/01/2021 03/01/2020 Covid-19 Vaccine ( season) 2024 06/29/2021, 09/19/2020, 08/26/2020 Influenza Vaccine (#1) 2024 Medical Devices Implanted Type Area Supervisor Heavy Equipment Device Identifier Shelf Expiration Date Model / Serial / Lot [employer] [id number] Acrysof Iq Natural Stableforce Acrysert 6mm 13mm 1 Piece Foldable - [id number] - [id number] Implanted:Qty: 1 on 03/01/2020 by Jaelyn Bauer MD at [facility] [employer] [id number] 09/20/2024 [id number] / [id number] / Insurance [facility] MEDICARE ADVANTAGE [facility] MEDICARE ADVANTAGE Care Teams Field Operations Coordinator Relationship Specialty Start Date End Date El Jarrett DO PCP - General Internal Medicine 07/01/19
--- OUTSIDE RECORDS SUMMARY | 2024-11-07 13:56 | XMS_ITS | Continuity of Care Document ---
Author Organization [facility] Address [address] [place] [address] utive [facility] [address] [place] [address] Phone Care Team Providers Care Tank Wagon Operator Name Role Phone Niraj Mulligan Unavailable Unavailable Procedures Procedure Date Visual Field Examination(s) Office Consultation Advance Directives Directive Yes / No Effective Date File Name No Information Encounters Encounter Description Practice Location Reason(s) For Visit Diagnoses Date Provider Providers Copied on Encounter [facility], [address] [place] [address] [address], [place], [place], [id number], tel:[phone] [facility] No Information [address]. [address] [place] [address], [facility], [place]. tel:[phone] Referring Provider: Niraj you, [address] [place] [address], [facility]. tel:[phone] Office Consultation [facility], [address] [place] [address] [address], [place], [place], [id number], tel:[phone] [facility] No Information [address]. [address] [place] [address], [facility], [place]. tel:[phone] Referring Provider: Nini Sol, [address] [facility] [employer], [place], [address]. tel:[phone] Family History Family Member Type Diagnosis Age At Onset No Information Payers Payer name Insurance type Covered alliance party ID Authoriza tion(s) No Information Social History Type Description Quantity Date Captured Comments Sex Male Smoking Status No Information Chief Complaint And Reason For Visit No Information Reason For Referral Reason For Referral No Information History Of Present Illness Encounter Date Complaint History Of Prese nt Illness No Information Functional Status Date Functional Assessmen t No Information Instructions Date Instruction Additional Infor mation No Information Assessments Type Assessment Date No Information Patient Care Teams Name Effective Dates (start - stop) Status Members No Information
== END 2024-11-07 13:48 | disposition home or self-care (01) ==
LOC: ANHAUDIO 13:47
PROVIDERS: PCP Nurse Practitioner; Visit Provider Otolaryngology
DX: H90.3 Sensorineural hearing loss, bilateral (principal); H61.23 Impacted cerumen, bilateral
CPT/HCPCS: 92557; 92567

== ENCOUNTER 2024-12-26 09:31 | Outpatient (CLI) | payer MEDICARE, SELFPAY ==
--- OUTSIDE RECORDS SUMMARY | 2024-12-26 09:38 | XMS_ITS | Clinical Summary ---
Author Organization [facility] [address] Address [address] [place] [address] Care Team Providers Care Pets Salesperson Name Role Phone El Jarrett DO Primary Care Provider [phone] Allergies Active Allergy Reactions Criticality Noted Date Comments Brimonidine Tartrate Redness Low 11/07/2013 Brimonidine-Timolol Itching Low 08/07/2013 Bimatoprost Unknown 08/16/2018 Timolol Swelling Medium 11/15/[address] (VOLTAREN) 75 mg EC tabletIndicati ons:Osteoarthr itis Take 1 tablet (75 mg total) by mouth 2 (two) times a day as needed Active multivitamin capsuleIndicat ions:Vitamin Deficiency Prevention Take 1 capsule by mouth wool sacker before breakfast Active losartan (COZAAR) 25 mg tabletIndicati ons:hypertensi on Take 25 mg by mouth wool sacker before breakfast 04/22/20 19 Active mupirocin (BACTROBAN) 2 % ointment APPLY TO AFFECTED AREA THREE TIMES DAILY 12/05/19 22 Active cephalexin (KEFLEX) 500 mg capsule Take 1 capsule (500 mg total) by mouth every 12 (twelve) hours 12/05/19 22 Active allopurinoL (ZYLOPRIM) 300 mg tablet Take 1 tablet (300 mg total) by mouth daily 08/19/19 25 Active travoprost (TRAVATAN Z) 0.004 % drops INSTILL 1 DROP INTO BOTH EYES NIGHTLY 7.5 mL 3 12/05/19 25 Active travoprost (TRAVATAN Z) 0.004 % drops INSTILL 1 DROP INTO BOTH EYES NIGHTLY 7.5 mL 3 12/06/19 24 025 Discontinued Active Problems Problem Noted Date Diagnosed Date [...] 03/04/2018 Assessment & Plan (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 Encounters Date Type Department Care Team Description 11/26/2024 Orders Only [facility] Op[facility]mology [address] [place] [phone] Da Bowling MD Primary open angle glaucoma (POAG) of left eye, severe stage (Primary Dx) 11/18/2024 11:30 AM CDT Office Visit [facility] [address] [place] [phone] Da Bowling MD Primary open angle glaucoma (POAG) of left eye, severe stage (Primary Dx); Primary open angle glaucoma (POAG) of right eye, mild stage 11/18/2024 11:00 AM CDT Imaging Exam [facility] [address] [place] [address] [address] [place] [address] Primary open angle glaucoma (POAG) of left eye, severe stage 11/13/2024 Orders Only [facility] [address] [place] [phone] Da Bowling MD Primary open angle glaucoma (POAG) of left eye, severe stage (Primary Dx) from Last 3 Months Immunizations Immunization Administration Dates Next Due Pfizer SARS-CoV-2 Monovalent Vaccination (12+ Yrs) PURPLE 06/29/2021,09/19/2020,08/26/2020 Surgical History Surgery Date Site/Laterality Comments HERNIA REPAIR EYE SURGERY CATARACT EXTRACTION Bilateral INTRAOCULAR LENS INSERTION TONSILECTOMY, ADENOIDECTOMY, BILATERAL MYRINGOTOMY AND TUBES 07/16/1952 - 07/15/1953 Bilateral APPENDECTOMY 07/16/1952 - 07/15/1953 TOTAL HIP ARTHROPLASTY 07/16/2016 - 07/15/2017 Right TOTAL HIP ARTHROPLASTY 07/16/2018 - 07/15/2019 Left Medical History Medical History Date Comments Hypertension Hyperlipidemia Cataract Glaucoma Dementia (HCC) Family History Medical History Relation Name Comments [...] on file Legal 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 Gender Identity Not on file Sexual Orientation [...] 3:45 PM CDT Height 170.2 cm (5' 7) 02/19/2020 3:45 PM CDT Body Mass Index [...] season) 2024 06/29/2021, 09/19/2020, 08/26/2020 Influenza Vaccine (Season Ended) 2025 Medical Devices Implanted Type Area Dishtank Operator Device Identifier Shelf Expiration Date Model / Serial / Lot [employer] Sn60wf.185 Acrysof Iq Natural Stableforce Acrysert 6mm 13mm 1 Piece Foldable - [id number] - [id number] Implanted:Qty: 1 on 03/01/2020 by Jaelyn Bauer MD at [facility] Advanced [employer] [id number] 09/20/2024 SN60WF.185 / [id number] / Procedures Procedure Name Priority Date/Time Associated Diagnosis Comments COURTNEY VISUAL FIELD - OU - BOTH EYES Routine 11/18/2024 11:12 AM CDT Primary open angle glaucoma (POAG) of left eye, severe stage from Last 3 Months Results * Courtney Visual Field - OU - Both Eyes (11/18/2024 11:12 AM CDT) Pattern Deviation OS Size 5 CONTINUUM Pattern Deviation OD 1.99 dB CONTINUUM Mean Deviation OS Size 5 CONTINUUM Mean Deviation OD -1.74 dB CONTINUUM Anatomical Region Laterality Modality Head Other Narrative 11/18/2024 12:45 PM CDT Right Eye Fixation was good. Cooperation was good. Reliability was good. Mean Deviation was -1.74 dB. Pattern Deviation was 1.99 dB. Left Eye Fixation was good. Cooperation was good. Reliability was good. Mean Deviation was Size 5. Pattern Deviation was Size 5. Notes OD: Full, nonspecific OS: high FL, inf > sup paracentral scotoma / arcuates, possible progression since 2022 vs. fluctuations Da Bowling MD OPHTH VISUAL FIELD Edited Res ult - Final from Last 3 Months Insurance [facility] MED[facility] Address: [address] [phone] [facility] MEDICARE [facility] Address: [facility] [id number] [place] [phone] Care Teams Pets Salesperson Relationship Specialty Start Date End Date El Jarrett DO PCP - General Internal Medicine 07/01/19
--- OUTSIDE RECORDS SUMMARY | 2024-12-26 09:38 | XMS_ITS | Continuity of Care Document ---
Author Organization [facility] Address [address] [place] [address] [facility] [address] [place] [address] Phone Care Team Providers Care Corporate Safety Director Name Role Phone Niraj Mulligan Unavailable Unavailable Procedures Procedure Date Visual Field Examination(s) Office Consultation Advance Directives Directive Yes / No Effective Date File Name No Information Encounters Encounter Description Practice Location Reason(s) For Visit Diagnoses Date Provider Providers Copied on Encounter [facility], [address] [place] [address] [address], [place], [place], [id number], tel:[phone] [facility] No Information [address] [place] [address], [facility], [place]. tel:[phone] Referring Provider: Niraj you, [address] [place] [address], [facility]. tel:[phone] Office Consultation [facility], [address] [place] [address] [address], [place], [place], [id number], tel:[phone] [facility] No Information [address] [place] [address], [facility], . tel:[phone] Referring Provider: Nini Sol, [address] [facility] [place] [facility], [place], [address]. tel:[phone] Family History Family Member Type Diagnosis Age At Onset No Information Payers Payer name Insurance type Covered green party ID Authoriza tion(s) No Information Social [...]
--- OUTSIDE RECORDS SUMMARY | 2024-12-26 09:38 | XMS_ITS | Referral Summary ---
Author Organization [facility] [address] [facility] [address] Address [address] [place] [address] Care Team Providers Care Synthetic Cloth Binding Cutter Name Role Phone El Jarrett DO Primary Care Provider [phone] Encounters Date Type Department Care Team Description 11/26/2024 Orders Only [facility] Ophthalmology [address] [place] [phone] Da Bowling MD Primary open angle glaucoma (POAG) of left eye, severe stage (Primary Dx) 11/18/2024 11:30 AM CDT Office Visit [facility] Ophthalmology [address] [place] [phone] Da Bowling MD Primary open angle glaucoma (POAG) of left eye, severe stage (Primary Dx); Primary open angle glaucoma (POAG) of right eye, mild stage 11/18/2024 11:00 AM CDT Imaging Exam [facility] Ophthalmology [address] [place] [address] [address] [place] [phone] Primary open angle glaucoma (POAG) of left eye, severe stage 11/13/2024 Orders Only [facility] Ophthalmology [address] [place] [phone] Da Bowling MD Primary open angle glaucoma (POAG) of left eye, severe stage (Primary Dx) from Last 3 Months Allergies Active Allergy Reactions Criticality Noted Date Comments Brimonidine Tartrate Redness Low 11/07/2013 Brimonidine-Timolol Itching Low 08/07/2013 Bimatoprost Unknown 08/16/2018 Timolol Swelling Medium 11/15/[address] (VOLTAREN) 75 mg EC tabletIndicati ons:Osteoarthr itis Take 1 tablet (75 mg total) by mouth 2 (two) times a day as needed Active multivitamin capsuleIndicat ions:Vitamin Deficiency Prevention Take 1 capsule by mouth feather washer before breakfast Active losartan (COZAAR) 25 mg tabletIndicati ons:hypertensi on Take 25 mg by mouth feather washer before breakfast 04/22/20 19 Active mupirocin (BACTROBAN) 2 % ointment APPLY TO AFFECTED AREA THREE TIMES DAILY 12/05/19 22 Active cephalexin (KEFLEX) 500 mg capsule Take 1 capsule (500 mg total) by mouth every 12 (twelve) hours 12/05/19 Active allopurinoL (ZYLOPRIM) 300 mg tablet Take [...] 03/04/2018 Assessment & Plan (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 fluctuations Da Bowling MD OPH VISUAL FIELD Edited Res ult - Final from Last 3 Months Insurance [facility] MEDICARE ADVANTAGE [address] [place] [id number] Care Teams Synthetic Cloth Binding Cutter Relationship Specialty Start Date End Date El Jarrett DO PCP - General Internal Medicine 07/01/19
[2024-12-26 12:42] LABS: Uric Acid 6.7 mg/dL (3.5-8.5)
[2024-12-26 14:53] LABS: Hemoglobin A1C 5.6 % (<5.7)
== END 2024-12-26 09:32 | disposition home or self-care (01) ==
LOC: ANHGOSHLAB 09:32
PROVIDERS: PCP Internal Medicine; Visit Provider Nurse Practitioner
DX: R73.03 Prediabetes (principal); M10.9 Gout, unspecified
CPT/HCPCS: 36415; 83036; 84550

== ENCOUNTER 2025-01-09 10:00 | Outpatient (RCR) | payer MEDICARE, SELFPAY | END 2025-01-09 23:59 | disposition home or self-care (01) | LOC: ANHAUDIO 10:00 | PROVIDERS: PCP Nurse Practitioner; Visit Provider Nurse Practitioner | DX: Z46.1 Encounter for fitting and adjustment of hearing aid (principal) | CPT/HCPCS: 99199; V5261 ==